=== PATIENT | male | born 2005 | race Hispanic/Latino ===

== ENCOUNTER 2024-01-22 09:10 | Emergency (ER) | payer OTHER, SELFPAY ==
[2024-01-22 09:14] VITALS: BP 131/65; PULSE 63; RESP 14; TEMP 36.5; O2SAT 99; BMI 23.6
[2024-01-22 09:38] LABS: Strep Grp A by PCR Rapid Negative (Negative)
[2024-01-22 09:48] VITALS: BP 133/60; PULSE 57; O2SAT 99
--- NOTE | 2024-01-22 09:56 | ED_ITS ---
HPI - URI/Sore Throat General Chief Complaint: Upper Respiratory Symptoms Stated Complaint: throat is closing up Time Seen by Provider: 01/22/24 09:22 Mode of arrival: Ambulatory History of Present Illness HPI Narrative: Patient 18-year-old healthy male with immunizations up-to-date presenting today with 2-3 days of throat swelling. He denies any sort of fever or pain. He just reports that it is a little difficult to swallow. He denies any sort of cough or any other symptoms. Patient denies any risk of STD from oral sex. Related Data Previous Rx's Medication Instructions Recorded amoxicillin 500 mg capsule 500 mg PO BID #14 caps 01/22/24 prednisone 20 mg tablet 40 mg (2 x 20 mg) PO DAILY #10 tabs 01/22/24 Allergies Allergy/AdvReac Type Severity Reaction Status Date / Time No Known Drug Allergies Allergy Verified 01/22/24 09:18 Patient History Social History Smoking Status: Never smoker Smoking Status: Never smoker alcohol intake frequency: 0-2 drinks per day Substance Use Type: does not use Exam Initial Vital Signs Initial Vital Signs: Vital Signs Temperature 97.7 F 01/22/24 09:14 Pulse Rate 63 01/22/24 09:14 Respiratory Rate 14 01/22/24 09:14 Blood Pressure 131/65 01/22/24 09:14 Pulse Oximetry 99 01/22/24 09:14 Oxygen Delivery Method Room Air 01/22/24 09:14 GENERAL: Well-appearing, well-nourished and in no acute distress. HEENT: Head atraumatic,EOMI, pupils reactive, face symmetric, moist mucous membranes PHARYNX: Enlarged tonsils with no upper palate swelling uvula is slightly enlarged with some deviation to the left airway is patent no exudate, slightly muffled voice CARDIOVASCULAR: Regular rate and rhythm without murmurs, rubs or gallops. RESPIRATORY: Breath sounds equal bilaterally, no wheezes rales or rhonchi. No stridor ABDOMEN: Soft, nontender. Normoactive bowel sounds all 4 quadrants. No guarding or rebound. EXTREMITIES: Normal range of motion, no clubbing or edema. Neurovascularly intact NEUROLOGICAL: Alert and oriented x4. SKIN: Warm, dry, no laceration, no petechiae, no rashes or lesions. Course Orders Ordered: ED Orders 01/22/24 09:20 Strep Grp A by PCR Rapid Stat 01/22/24 09:22 Blood Culture Stat 01/22/24 09:55 CBC Auto Diff [Complete Blood Count AUTO DIFF] Stat CMP [Comprehensive Metabolic Panel] Stat Discontinued Medications Dexamethasone (Dexamethasone 10 Mg/Ml Vial) 10 mg IV NOW ONE Stop: 01/22/24 09:23 Last Admin: 01/22/24 10:11 Dose: 10 mg Documented By: JULI Ampicillin Sodium/Sulbactam (Sodium 3 gm/ Sodium Chloride) 100 mls @ 200 mls/hr IV NOW ONE Stop: 01/22/24 09:23 Last Infusion: 01/22/24 10:59 Dose: Infused Documented By: Admin: 01/22/24 10:11 Dose: 200 mls/hr Documented By: JULI Sodium Chloride (Normal Saline 0.9%) 1,000 mls @ 1,000 mls/hr IV BOLUS ONE Stop: 01/22/24 10:21 Last Infusion: 01/22/24 10:59 Dose: Infused Documented By: Admin: 01/22/24 10:11 Dose: 1,000 mls/hr Documented By: JULI Vital Signs Vital signs: Vital Signs - 8 hr 01/22/24 09:14 01/22/24 09:48 01/22/24 09:48 Temperature 97.7 F Pulse Rate 63 57 L Respiratory Rate 14 Blood Pressure 131/65 133/60 Pulse Oximetry 99 99 Oxygen Delivery Method Room Air Room Air MDM - URI/Sore Throat Lab Data 01/22/24 09:55 01/22/24 09:55 Labs: Lab Results 01/22/24 01/22/24 Range/Units 09:20 09:55 WBC 9.5 (4.5-11.0) X10^3/uL RBC 4.87 (4.5-5.9) X10^6/uL Hgb 14.6 (13.5-17.5) g/dL Hct 43.5 (41-53) % MCV 89.4 (80-100) fL MCH 29.9 (26-34) PG MCHC 33.5 (30-36) % RDW 14.1 (11.6-14.8) % Plt Count 212 (150-400) X10^3/uL Neut % (Auto) 77.6 H (50-75) % Lymph % (Auto) 14.0 L (25-40) % [place] % (Auto) 6.6 (3-14) % Eos % (Auto) 0.8 L (2-4) % Baso % (Auto) 1.0 (0-2) % Neut # (Auto) 7400 H (5753-6585) /uL Lymph # (Auto) 1300 (1227-2322) /uL [place] # (Auto) 600 (0-900) /uL Eos # (Auto) 100 (0-450) /uL Baso # (Auto) 100 (0-100) /uL Sodium 140 (137-145) mmol/L Potassium 4.3 (3.4-5.1) mmol/L Chloride 107 (98-107) mmol/L Carbon Dioxide 29 (22-32) mmol/L BUN 18 (9-20) mg/dL Creatinine 1.04 (0.66-1.25) mg/dL Estimated GFR > 60 (>60) mL/min BUN/Creatinine Ratio 17.3 (6-22) Glucose 87 (70-100) mg/dL Calcium 9.5 (8.4-10.2) mg/dL Total Bilirubin 0.9 (0.2-1.3) mg/dL AST 25 (17-59) IU/L ALT 17 (<50) IU/L Alkaline Phosphatase 91 (38-126) U/L Total Protein 7.6 (6.3-8.2) g/dL Albumin 4.7 (3.5-5.0) g/dL Globulin 2.9 (1.7-4.1) g/dL Albumin/Globulin Ratio 1.6 (1.0-2.8) Group A Strep (PCR) Negative (Negative) MDM Narrative Medical decision making narrative: Patient is a 18-year-old male fully immunized presenting today with swelling of his uvula. Throat is minimally erythematous rapid strep is negative knee is afebrile not have any sort of infectious symptoms. I suspect a uvulitis no evidence of retropharyngeal abscess or peritonsillar abscess. Blood work has been reviewed without any sort of leukocytosis or other abnormality. He is given IV fluids Unasyn and dexamethasone here in the ED. No concern for STD. Discussed supportive care at home. We will give him prednisone and amoxicillin. Discharge Plan Departure Patient Disposition: Home Clinical Impression: Uvulitis Instructions: DI for Uvulitis Activity Restrictions/Additional Instructions: -you have been diagnosed with uvulitis -it is swelling of your uvula. -what to do: * Get lots of rest. * Drink plenty of fluids. * Gargle with warm salt water to reduce swelling. * Take over the counter pain medicine. * Use throat lozenges or a throat spray to help with the pain. -take amoxicillin 500 mg twice a day for 7 days--[facility] to [facility] -prednisone 40 mg once a day for 5 days Return to the emergency department if you should have increased pain difficulty breathing or swallowing -please follow-up with your primary care provider in 2-3 days Prescriptions: New amoxicillin 500 mg capsule 500 mg PO BID Qty: 14 0RF prednisone 20 mg tablet 40 mg PO DAILY Qty: 10 0RF Stand Alone Forms: Patient Portal/API
[2024-01-22 10:03] LABS: Add Manual Diff / Slide Review NO; Basophils Absolute Auto 100 /uL (0-100); Eosinophils Absolute Auto 100 /uL (0-450); Eosinophils Percent Auto 0.8 % (2-4); Hematocrit 43.5 % (41-53); Hemoglobin 14.6 g/dL (13.5-17.5); Lymphocytes Absolute Auto 1300 /uL (1100-4500); Mean Corpuscular HGB Conc 33.5 % (30-36); Mean Corpuscular Hemoglobin 29.9 PG (26-34); Mean Corpuscular Volume 89.4 fL (80-100); Monocytes Absolute Auto 600 /uL (0-900); Monocytes Percent Auto 6.6 % (3-14); Neutrophils Absolute Auto 7400 /uL (1500-7000); Neutrophils Percent Auto 77.6 % (50-75); Platelet Count 212 X10^3/uL (150-400); Red Blood Cell Count 4.87 X10^6/uL (4.5-5.9); Red Cell Distribution Width 14.1 % (11.6-14.8); White Blood Cell Count 9.5 X10^3/uL (4.5-11.0)
[2024-01-22] MEDS: AMPICILLIN/SULBACTAM 3 GM 3 GM in SODIUM CHLORIDE 0.9% 100 ML IV (10:11)
[2024-01-22] MEDS: SODIUM CHLORIDE 0.9% 1,000 ML 1000 ML IV (10:11)
[2024-01-22] MEDS: DEXAMETHASONE 10 MG/ML VIAL IV (10:11)
[2024-01-22 10:14] LABS: Alanine Aminotransferase 17 IU/L (<50); Albumin 4.7 g/dL (3.5-5.0); Albumin Globulin Ratio 1.6 (1.0-2.8); Alkaline Phosphatase 91 U/L (38-126); Aspartate Aminotransferase 25 IU/L (17-59); BUN Creatinine Ratio 17.3 (6-22); Bilirubin Total 0.9 mg/dL (0.2-1.3); Blood Urea Nitrogen 18 mg/dL (9-20); Calcium 9.5 mg/dL (8.4-10.2); Carbon Dioxide 29 mmol/L (22-32); Chloride 107 mmol/L (98-107); Estimated Glomerular Filt Rate > 60 mL/min (>60); Globulin 2.9 g/dL (1.7-4.1); Glucose 87 mg/dL (70-100); HEMOLYSIS < 15 (0-50); Potassium 4.3 mmol/L (3.4-5.1); Sodium 140 mmol/L (137-145); Total Protein 7.6 g/dL (6.3-8.2)
== END 2024-01-22 11:12 | disposition home or self-care (01) ==
PROVIDERS: Emergency Provider Emergency Medicine
DX: K12.2 Cellulitis and abscess of mouth (principal)
CPT/HCPCS: 36415; 80053; 85025; 87040; 87070; 87651; 96365; 96375; 99284; J0295; J1100